=== PATIENT | male | born 1995 | race Caucasian/White ===

== ENCOUNTER 2017-04-13 09:18 | Emergency (ER) | payer OTHER ==
[~2017-04-13] VITALS: Ht 200.7 cm; Wt 134.1 kg
--- NOTE | 2017-04-13 10:39 | REP ---
Clinical: Trauma . Comparison: None . Findings: The ventricles, sulci, and cisterns are normal in position and appearance. Jain-white differentiation is maintained. No acute intracranial hemorrhage, mass/mass effect, pathology or trauma/injury. No evidence for acute infarction. No extra-axial fluid collection. Calvarium is intact. Paranasal sinuses and mastoid air cells are clear. Impression: Normal noncontrast head CT. No evidence for acute intracranial pathology or trauma/injury. Signed by Douglas Ware MD 04/13/2017 10:30 A
--- NOTE | 2017-04-13 10:43 | REP ---
Clinical: Trauma. Technique: Axial noncontrast images through the facial bones to include the mandible with coronal and sagittal re-formations. Findings: The osseous structures are intact and there is no evidence for fracture or dislocation. Specifically, the bilateral zygomatic arches, nasal bones, and mandible including bilateral temporomandibular joints appear normal and symmetric. The sinuses and mastoid air cells are all well aerated and clear without fluid level to suggest occult trauma. The bilateral orbits including the globes and intraconal contents appear symmetric and normal. Right periorbital soft tissue swelling and laceration noted without foreign body or underlying fracture. Impression: Right periorbital soft tissue swelling and laceration. No further evidence for acute pathology or trauma/injury. Signed by Douglas Ware MD 04/13/2017 10:34 A
--- NOTE | 2017-04-13 10:51 | REP ---
Clinical: Trauma . Technique: Axial noncontrast images from the skull base to the thoracic inlet with coronal and sagittal re-formations Findings: Normal alignment and lordosis is maintained. Cervical vertebral bodies including transverse processes and spinous processes are intact and there is no evidence for acute fracture / compression injury or subluxation. Spinal canal is patent. Posterior elements are intact. Paravertebral soft tissues are normal. Impression: Normal noncontrast cervical spine CT. No evidence for acute pathology or trauma/injury. Signed by Douglas Ware MD 04/13/2017 10:42 A
[2017-04-13] MEDS ORDERED: LIDOCAINE W/EPINEPHRINE 1% 20ML VIAL As Ordered ONE (12:46)
[2017-04-13] MEDS ORDERED: BACIOIN5 OP (13:45)
[2017-04-13] MEDS ORDERED: KEFL500C17 PO (13:46)
[2017-04-13 14:01] VITALS: BP 142/66
[2017-04-13 15:06] LABS: METHADONE URINE NEGATIVE (NEGATIVE)
== END 2017-04-13 14:35 | disposition home or self-care (01) ==
LOC: M ED 09:18
DX: S01.81XA Laceration without foreign body of other part of head, initial encounter (principal); V43.52XA Car driver injured in collision with other type car in traffic accident, initial encounter; Y92.410 Unspecified street and highway as the place of occurrence of the external cause
CPT/HCPCS: 12054; 70450; 70486; 72125; 80307; 99283; G0480